=== PATIENT | male | born 1945 | race Caucasian/White ===

== ENCOUNTER 2016-10-13 13:39 | Outpatient (CLI) | payer MEDICARE ==
[2016-10-13 16:33] LABS: ALT (SGPT) 29 U/L (8-55); AST (SGOT) 25 U/L (5-34); Albumin 4.5 g/dL (3.4-4.8); Alkaline Phosphatase 102 U/L (40-150); Anion Gap 16 mmol/L (10-20); BUN (Urea Nitrogen) 16 mg/dL (8.4-25.7); Bilirubin, Total 0.7 mg/dL (0.2-1.2); Calc. Creatinine Clearance 0 mL/min (70-130); Calcium 9.5 mg/dL (7.8-10.44); Carbon Dioxide 26 mmol/L (23-31); Cardiac Risk 6.9 (Less than 4.5); Chloride 106 mmol/L (98-107); Cholesterol 192 mg/dl (< 200 Desired); Estimated GFR-MDRD 63; Globulin 3.4 g/dL (2.4-3.5); Glucose 163 mg/dL (80-115); HDL Cholesterol 28 mg/dL (>60 Neg Risk); Potassium 5.9 mmol/L (3.5-5.1); Protein, Total 7.9 g/dL (5.8-8.1); Sodium 142 mmol/L (136-145); Triglycerides 434 mg/dL (Less than 150)
[2016-10-13 16:48] LABS: PSA-Asymptomatic (SCREENING) 1.21 ng/mL (0-4.0)
[2016-10-13 18:25] LABS: Eosinophils 3 % (0-10); Lymphocytes 28 % (21-51); MDiff Complete? YES; Mean Corpuscular HGB CONC 34.2 g/dL (32.0-36.0); Mean Corpuscular Hemoglobin 31.6 pg (27.0-31.0); Mean Corpuscular Volume 92.4 fl (80.0-94.0); Mean Platelet Volume 7.4 fL (7.4-10.4); Monocytes 5 % (0-10); Neutrophil 64 % (42-75); Platelet Count 203 thou/uL (130-400); RBC Distribution Width 11.9 % (11.5-14.5); Red Blood Cell (RBC) Count 5.39 mill/uL (4.70-6.10); White Blood Cell (WBC) Count 6.5 thou/uL (4.8-10.8)
[2016-10-13 18:36] LABS: Hep C IgG Ab Non-Reactive (NonReactive); Hep C Index 0.09 S/CO (0-0.79)
== END 2016-10-13 13:40 ==
LOC: LABLEX 13:39
PROVIDERS: ATTEND Family Medicine
DX: Z12.5 Encounter for screening for malignant neoplasm of prostate (principal); Z13.6 Encounter for screening for cardiovascular disorders; Z13.1 Encounter for screening for diabetes mellitus; I10 Essential (primary) hypertension; Z72.89 Other problems related to lifestyle
CPT/HCPCS: 80053; 80061; 84443; 85025; 86803; G0103

== ENCOUNTER 2016-10-20 09:20 | Outpatient (CLI) | payer MEDICARE ==
[2016-10-20 16:38] LABS: Potassium 4.7 mmol/L (3.5-5.1)
[2016-10-20 17:32] LABS: Hemoglobin A1c 5.9 % (4.0-6.0)
== END 2016-10-20 09:21 ==
LOC: LABLEX 09:20
PROVIDERS: ATTEND Family Medicine
DX: E87.5 Hyperkalemia (principal); R73.09 Other abnormal glucose
CPT/HCPCS: 83036; 84132

== ENCOUNTER 2016-10-22 08:39 | Outpatient (CLI) | payer MEDICARE ==
--- NOTE | 2016-10-22 17:12 | ULT ---
ABDOMINAL AORTIC ULTRASOUND 10/22/16 Ultrasonography of the abdomen was done targeting the aorta for screening for an aneurysm. There was no evidence of aortic aneurysm. Arteriosclerotic change was seen in the aorta. Diameters o f the aorta generally ranged from 1.9 cm proximally to 1.6 cm mid aorta to 1.3 cm distally. Flow was seen through the vessel as expected. Neither iliac artery was dilated. IMPRESSION: Arteriosclerotic change but no evidence of abdominal aortic aneurysm. POS: HOME
== END 2016-10-22 08:40 | disposition home or self-care (01) ==
LOC: BURULT 08:39
PROVIDERS: ATTEND Family Medicine
DX: Z13.6 Encounter for screening for cardiovascular disorders (principal)
CPT/HCPCS: 76775